=== PATIENT | female | born 1945 ===

== ENCOUNTER 2019-08-20 15:40 | Inpatient (IN) | payer MEDICARE ==
[2019-08-20] MEDS ORDERED: Magnesium Hydroxide (MOM) 30 mL UDC PO PRN (21:07)
[2019-08-20] MEDS ORDERED: Maalox 30 mL Cup PO PRN (21:07)
[2019-08-21] MEDS ORDERED: PROMETHAZINE HCL 25 MG PO PRN (07:42)
[2019-08-21] MEDS: Multivitamin Tab PO SCH (09:08)
[2019-08-21] MEDS: Apixaban 5 MG TABLET PO SCH ×2 (09:08→16:18)
[2019-08-21] MEDS: NIFEdipine 30 mg ER Tab PO SCH (09:08)
[2019-08-21] MEDS: Levothyroxine 0.1 Mg Tab PO SCH (09:10)
[2019-08-21] MEDS ORDERED: DIAZEPAM 10 MG PO SCH (21:00)
--- NOTE | 2019-08-22 00:15 | Consultation ---
DATE OF CONSULTATION: 08/21/2019 INITIAL PSYCHIATRIC EVALUATION Covering for Dr. Campo. IDENTIFYING DATA: A 73-year-old female. CHIEF COMPLAINT: "I don't know why I am here." HISTORY OF PRESENT ILLNESS: A 73-year-old female who was transferred from [facility] for medical clearance, who has been recently refusing care. Today on [id number] evaluation, the patient reports that she is extremely angry because we were "____ her care that she does not need to be here." She was supposed to go to [facility] and they just brought her here unjustly. The patient reports that she has a master's in psychology, ____ anger, avoiding and refusing all questions regarding her depression and anxiety and then she does report that she has seen a psychiatrist in the past, but is extremely guarded and minimizing about her symptoms. Medical records reviewed from [facility], medically cleared. PAST MEDICAL HISTORY: Hypertension, history of venous thrombosis, embolism, cerebral palsy with a history of confusion, agitation that led to the psychiatric hospitalization. PAST PSYCHIATRIC HISTORY: Unknown, refused to answer. SOCIAL HISTORY: Retired. Denies any illicit drug use or alcohol. PAST PSYCHIATRIC HISTORY: Denies. PAST SUICIDE ATTEMPTS: Denies. CURRENT MEDICATIONS: Reconciliation reviewed. LABORATORY DATA: Reviewed from the hospital within normal limits. MENTAL STATUS EXAMINATION: Calm, slightly anxious, congruent, gentle, anxious, distress, guarded, minimizing; therefore, unable to assess thought content, linear thought process. WEAKNESSES: Poor coping skills. STRENGTHS: Good capacity. Awake and alert x 3. ASSESSMENT: A 73-year-old female with a history of unknown mood disorder, brought in here [facility] She is guarded, minimizing, disengaged in the interview. We will obtain more collateral baseline information before initiating medication as she presents very guarded. PRIMARY DIAGNOSIS: Unspecified mood disorder. SECONDARY DIAGNOSIS: History of anxiety disorder. MEDICAL DIAGNOSIS: As noted above. PLAN: 1. Admit. 2. Obtain more collateral baseline information. 3. Observe. 4. 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 JOB# [id number]
[2019-08-22] MEDS: Levothyroxine 0.1 Mg Tab PO SCH (06:51)
[2019-08-22] MEDS: NIFEdipine 30 mg ER Tab PO SCH (08:41)
[2019-08-22] MEDS: Multivitamin Tab PO SCH (08:42)
[2019-08-22] MEDS: Apixaban 5 MG TABLET PO SCH ×2 (08:42→17:24)
[2019-08-22] MEDS: Hydrocodone/APAP 10 mg/325 mg Tab PO PRN (14:06)
--- NOTE | 2019-08-22 21:49 | Progress Notes ---
DATE: SUBJECTIVE: Chart was reviewed and the patient interviewed. Also discussed the patient's condition with the staff and reviewed records and labs. The patient seems to be slightly confused about places where she wants to live and the patient said that she wants to go to a rehab place. At the same time, she is not sure about [facility] rehab place. The patient also said that she lives by herself and she is for many years and has no children. 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 According to staff, the patient has been suspicious and has been paranoid, but during my interview, the patient was slightly calmer than what the description from the staff, but she still seems to be suspicious and paranoid. ASSESSMENT: The patient is still psychotic. TREATMENT PLAN: The patient agreed to start on Risperdal 0.25 mg twice a day and we will monitor the dose. Also, we will support therapy for the patient and work on discharge plans and placement issue. The patient also is complaining of leg cramps and we will monitor that. JOB# [id number]
--- NOTE | 2019-08-23 01:53 | History & Physical ---
ADMIT DATE: 08/22/2019 REASON FOR ADMISSION: Psychiatric disorders. HISTORY OF PRESENT ILLNESS: This is a 73-year-old female with history of hypothyroidism, chronic pain syndrome, dementia, mental disorder, was admitted to [facility] for evaluation of the underlying dementia and mental disorders. The patient on my evaluation was alert, awake, and fine, bilateral lower extremity pain. PAST MEDICAL HISTORY: Hypothyroidism, chronic pain syndrome, dementia. PAST SURGICAL HISTORY: Noncontributory. FAMILY HISTORY: Noncontributory. SOCIAL HISTORY: Lives at assisted living. No alcohol, tobacco, or drug use. CURRENT MEDICATIONS: Per medication reconciliation. ALLERGIES: SULFA. REVIEW OF SYSTEMS: Lower extremity weakness, pain, bilateral knee pain. Otherwise, 12-point system review is negative. PHYSICAL EXAMINATION: VITAL SIGNS: Temperature 98.0, pulse 78, respiration 19, blood pressure 104/64. HEART: S1, S2 normal. LUNGS: Clear. ABDOMEN: Soft. EXTREMITIES: No edema. No calf tenderness noted. LABORATORY DATA: Available lab data has been ____. ASSESSMENT: 1. Bilateral lower extremity pain. 2. Hypothyroidism. 3. Chronic pain syndrome. 4. Mental health disorder. 5. Dementia. 6. ____. PLAN: Psych evaluation by psychiatristSarbjit as needed. Continue thyroid medications. PT, OT ordered. Psych management by psychiatrist. The patient is medically stable. JOB# [id number]
[2019-08-23] MEDS: Levothyroxine 0.1 Mg Tab PO SCH (06:46)
[2019-08-23] MEDS: NIFEdipine 30 mg ER Tab PO SCH (08:57)
[2019-08-23] MEDS: Apixaban 5 MG TABLET PO SCH ×2 (08:57→16:27)
[2019-08-23] MEDS: Hydrocodone/APAP 10 mg/325 mg Tab PO PRN ×3 (08:58→22:37)
[2019-08-23] MEDS: Multivitamin Tab PO SCH (08:59)
--- NOTE | 2019-08-23 22:41 | Progress Notes ---
DATE: SUBJECTIVE: Chart reviewed and patient interviewed. Also discussed the patient's condition with the staff and reviewed records and labs. The patient is still argumentative and she is making some racial remarks, according to the staff. The patient also is still suspicious and paranoid and resisting care. She also still guarded and still has mood swings. Otherwise, the patient started on Risperdal yesterday with no side effects. ASSESSMENT: The patient is still paranoid and psychotic and needs close monitoring. TREATMENT PLAN: Continue supportive therapy for the patient and working on behavioral modification as well as adjusting psychotropic medications. JOB# [id number]
[2019-08-24] MEDS: Levothyroxine 0.1 Mg Tab PO SCH (07:01)
[2019-08-24] MEDS: NIFEdipine 30 mg ER Tab PO SCH (08:34)
[2019-08-24] MEDS: Multivitamin Tab PO SCH (08:35)
[2019-08-24] MEDS: Apixaban 5 MG TABLET PO SCH ×2 (08:36→16:38)
--- NOTE | 2019-08-24 21:45 | Progress Notes ---
DATE: SUBJECTIVE: Chart reviewed and the patient interviewed. Also, discussed the patient's condition with the staff and reviewed records and labs. The patient is still in a depressed mood and she is still suspicious and paranoid. The patient also is guarded and withdrawn and interacting minimally with others. Also, she is still resisting care and argumentative with the staff. Also, the patient is complaining of leg pain. Yesterday, the patient's blood pressure was low and the Valium was upheld. The patient is still unable to provide any safe plan for her discharge and she still seems to be in a depressed mood. ASSESSMENT: The patient is still depressed and slightly confused. TREATMENT PLAN: Continue to monitor her behavior and her condition closely. Also, we will continue Risperdal, but will decrease Valium to 5 mg at bedtime and we will continue to follow up. JOB# [id number]
[2019-08-25] MEDS: Levothyroxine 0.1 Mg Tab PO SCH (06:41)
[2019-08-25] MEDS: Multivitamin Tab PO SCH (08:17)
[2019-08-25] MEDS: NIFEdipine 30 mg ER Tab PO SCH (08:17)
[2019-08-25] MEDS: Apixaban 5 MG TABLET PO SCH ×2 (08:17→16:14)
--- NOTE | 2019-08-25 22:15 | Progress Notes ---
DATE: 08/25/2019 SUBJECTIVE: Chart reviewed and the patient interviewed. Also discussed the patient's condition with the staff and reviewed records and labs. The patient is still suspicious and paranoid and forgetful. She is also slightly confused. The patient also still has difficulty with her mood and she is still withdrawn. Otherwise, the patient is compliant with taking her medications with no side effects of medications. ASSESSMENT: The patient is less psychotic, but still needs close monitoring. TREATMENT PLAN: Continue monitoring her behavior and her condition closely. Also, continue adjusting psychotropic medications and work on her discharge plans. JOB# [id number]
[2019-08-26] MEDS: Levothyroxine 0.1 Mg Tab PO SCH (06:38)
[2019-08-26] MEDS: Multivitamin Tab PO SCH (08:33)
[2019-08-26] MEDS: NIFEdipine 30 mg ER Tab PO SCH (08:33)
[2019-08-26] MEDS: Apixaban 5 MG TABLET PO SCH ×2 (08:33→16:39)
[2019-08-27] MEDS: Levothyroxine 0.1 Mg Tab PO SCH (07:09)
[2019-08-27] MEDS: Hydrocodone/APAP 10 mg/325 mg Tab PO PRN ×2 (09:00→17:34)
[2019-08-27] MEDS: Apixaban 5 MG TABLET PO SCH ×2 (10:00→17:34)
[2019-08-27] MEDS: Multivitamin Tab PO SCH (10:00)
[2019-08-27] MEDS: NIFEdipine 30 mg ER Tab PO SCH (10:00)
--- NOTE | 2019-08-27 21:04 | Progress Notes ---
DATE: 08/27/2019 Case was discussed with staff of the patient, reviewed records. Covering for Dr. Campo. This is a 73-year-old female who was admitted on 08/20/2019, transferred from [facility]. The patient has been refusing care. The patient was extremely angry. The patient reported that she does need to be at this facility. She was to go to [facility] and they brought her here unjustly. The patient reports she has a master's in psychology. She has been angry, refusing all questions, feeling depressed. The patient also with a history of hypertension, DVT, embolism, cerebral palsy with a history of confusion and agitation. The patient believed that they have her name wrong on her records, her last name is Rich and I assured her that, that is what we have on her records. The patient continues to be paranoid, forgetful, confused. Continues to be labile, unpredictable, impulsive, needing redirection. The patient has been on Risperdal 0.25 mg twice a day with no side effects, no sedation, no nausea, no extrapyramidal symptoms. We will continue to work with the patient in group therapy, milieu therapy, and adjust the medication as needed. JOB# [id number]
[2019-08-28] MEDS: Levothyroxine 0.1 Mg Tab PO SCH (06:42)
[2019-08-28] MEDS: Apixaban 5 MG TABLET PO SCH ×2 (09:32→17:40)
[2019-08-28] MEDS: NIFEdipine 30 mg ER Tab PO SCH (09:33)
[2019-08-28] MEDS: Multivitamin Tab PO SCH (09:33)
[2019-08-28] MEDS: Hydrocodone/APAP 10 mg/325 mg Tab PO PRN ×2 (14:27→20:51)
--- NOTE | 2019-08-28 14:41 | Progress Notes ---
DATE: 08/28/2019 Case was discussed with staff of the patient, reviewed records. The patient is able to make sense. Continues to be unpredictable, impulsive with episodes of being angry, irritable. Sleeping better, eating better. No side effects of the medication, no sedation, no nausea, no extrapyramidal symptoms. The patient with a history of hypertension, DVT embolism, cerebral palsy, confused, agitated at times. No side effects with the medication, no sedation, no nausea, no extrapyramidal symptoms. We will continue to work with the patient in group therapy, milieu therapy, and adjust the medication as needed. JOB# [id number]
--- NOTE | 2019-08-28 19:26 | Progress Notes ---
DATE: 08/25/2019 SUBJECTIVE: Chart reviewed and the patient interviewed. Also discussed the patient's condition with the staff and reviewed records and labs. The patient is still confused. She also still paranoid and delusional and thinks that the staff are "giving me the wrong medicine." The patient also still needs redirections. She also is argumentative. The patient also yesterday refused to take any medications for the first time. Otherwise, no behavioral issues and unable to provide any specific plans for discharge. ASSESSMENT: The patient is still depressed and slightly confused. TREATMENT PLAN: We will continue monitoring her behavior closely. Also, continue working on discharge plans and placement issue. JOB# [id number]
[2019-08-29] MEDS: Levothyroxine 0.1 Mg Tab PO SCH (06:55)
[2019-08-29] MEDS: Apixaban 5 MG TABLET PO SCH ×2 (08:18→16:12)
[2019-08-29] MEDS: Multivitamin Tab PO SCH (08:18)
[2019-08-29] MEDS: NIFEdipine 30 mg ER Tab PO SCH (08:19)
[2019-08-29] MEDS: Hydrocodone/APAP 10 mg/325 mg Tab PO PRN ×2 (08:27→16:12)
--- NOTE | 2019-08-29 09:22 | Progress Notes ---
DATE: SUBJECTIVE: Chart was reviewed and the patient interviewed. Also discussed the patient's condition with the staff and reviewed records and labs. The patient is still guarded and still has labile affect. The patient also is still in a depressed mood and suspicious and paranoid. The patient also is still easily agitated at times but at the same time wants to be left alone. She also still unable to provide safe plan for self-care or discharge. On the other hand, the patient has been compliant with taking her medications with no side effects of medications. During interview, the patient is calm and cooperative and she is slightly suspicious, but no behavioral issues. ASSESSMENT: The patient is still depressed. TREATMENT PLAN: We will work with case management social worker in regard to discharge plans and it seemed that the patient most probably will go to [facility], but patient is still not agreeable to go there. JOB# [id number]
[2019-08-30] MEDS: Levothyroxine 0.1 Mg Tab PO SCH (06:44)
--- NOTE | 2019-08-30 07:32 | Progress Notes ---
DATE: PSYCHIATRIC PROGRESS NOTE SUBJECTIVE: Chart was reviewed and the patient interviewed. Also discussed the patient's condition with the staff and reviewed records and labs. The patient is still guarded and she is still suspicious and slightly paranoid. The patient also is still restless and still has sometimes mood swings. She also is still unsure about her placement. Continue to discuss with the patient placement in [facility]. At the same time, we will continue to work on her ineffective coping and we will continue to follow up. JOB# [id number]
[2019-08-30] MEDS: Apixaban 5 MG TABLET PO SCH ×2 (08:45→17:06)
[2019-08-30] MEDS: Multivitamin Tab PO SCH (08:45)
[2019-08-30] MEDS: Hydrocodone/APAP 10 mg/325 mg Tab PO PRN ×2 (08:45→15:18)
[2019-08-30] MEDS: NIFEdipine 30 mg ER Tab PO SCH (08:46)
--- NOTE | 2019-08-30 22:00 | General Progress Note ---
Subjective - Review of Systems Service Date: 08/30/19 Subjective: Patient seen and examined feels better Objective - Results Recent Labs: Laboratory Last Values POC Glucose 83 MG/DL (70 - 105) 08/20/19 20:04 - Physical Exam Vitals and I&O: Vital Signs Temp 99.1 F 08/30/19 21:07 Pulse 82 08/30/19 21:07 Resp 20 08/30/19 21:07 BP 109/71 08/30/19 21:07 Pulse Ox 92 08/30/19 21:07 Intake & Output 08/30/19 08/30/19 08/31/19 06:59 18:59 06:59 Intake Total 240 900 120 Balance 240 900 120 Intake: Oral 240 900 120 Other: # Voids 3 3 3 # Bowel Movements 0 0 1 Active Medications: Current Medications Acetaminophen (Tylenol) 650 mg PO Q4H PRN PRN Reason: Pain (Mild 1-3) Stop: 10/19/19 21:00 Last Admin: 08/25/19 16:14 Dose: 650 mg Acetaminophen (Tylenol) 650 mg PO Q4HR PRN PRN Reason: Temperature Above 100 Stop: 10/19/19 21:06 Acetaminophen/Hydrocodone Bitart ([place] 10 Mg/325 Mg) 1 tab PO Q4HR PRN PRN Reason: Pain (Severe 7-10) Stop: 10/20/19 07:44 Last Admin: 08/30/19 15:18 Dose: 1 tab Al Hydrox/Mg Hydrox/Simethicone (Maalox) 30 ml PO Q4HR PRN PRN Reason: GI DISTRESS Stop: 10/19/19 21:06 Ascorbic Acid (Vitamin C) 500 mg PO DAILY COREEN Stop: 10/20/19 08:59 Last Admin: 08/30/19 08:45 Dose: 500 mg Baclofen (Lioresal) 10 mg PO BID COREEN Stop: 10/20/19 08:59 Last Admin: 08/30/19 17:06 Dose: 10 mg Diazepam (Valium) 5 mg PO HS COREEN Stop: 10/23/19 20:59 Last Admin: 08/30/19 20:54 Dose: 5 mg Levothyroxine Sodium (Synthroid) 0.1 mg PO QDAC COREEN Stop: 10/20/19 08:59 Last Admin: 08/30/19 06:44 Dose: 0.1 mg Lorazepam (Ativan) 0.5 mg PO Q4HR PRN; Protocol PRN Reason: Agitation Stop: 09/19/19 21:06 Magnesium Hydroxide (Milk Of Magnesia) 30 ml PO HS PRN PRN Reason: Constipation Multivitamins/Vitamin C (Theragran) 1 tab PO DAILY COREEN Stop: 10/20/19 08:59 Last Admin: 08/30/19 08:45 Dose: 1 tab Nifedipine (Procardia Xl) 30 mg PO DAILY COREEN Stop: 10/20/19 08:59 Last Admin: 08/30/19 08:46 Dose: 30 mg Risperidone (Risperdal) 0.25 mg PO BID COREEN; Protocol Stop: 10/21/19 08:59 Last Admin: 08/30/19 17:06 Dose: 0.25 mg Temazepam (Restoril) 15 mg PO HS PRN; Protocol PRN Reason: Insomnia Stop: 10/20/19 07:41 Last Admin: 08/26/19 20:58 Dose: 15 mg Cardiovascular: Regular rate Lungs: Clear to auscultation Assessment/Plan - Assessment Assessment: Hypothyroidism Chronic pain syndrome Dementia Mental health disorder - Plan Plan: Continue current treatment plan Psych management per psych Fall precaution Asp precaution Nutritional Asmnt/Malnutr-PDOC - Dietary Evaluation Malnutrition Findings (Please click <Entered> for more info): Nutritional Asmnt/Malnutrition Start: 08/24/19 14: 34 Text: Status: Complete Freq: Protocol: Document 08/24/19 14:36 ROSALIE (Rec: 08/24/19 14:39 ROSALIE [id number]) Nutritional Asmnt/Malnutrition Patient General Information Nutritional Screening Moderate Risk Diagnosis Psychosis Pertinent Medical Hx/Surgical Hx Hypothyroidism, Chronic Pain Syndrome, Dementia Subjective Information Pt is a 73-year-old female admitted on 08/20 d/t refusing care. Pt is eating an estimated 60% of meals x3 days Per Meal/Nutrition Activity Record. Dietary is currently providing an estimated 2300 kcals and 140 gm Pro, per Pt PO intake this is providing an estimated 1380 kcals and 80gm Pro to meet 100% kcal and 100 +% Pro needs. Visited pt after lunch, stated she does not like regular milk and would prefer soy or almond milk, changes complete with dietary. Anthropometrics HT: 54 WT: 115 LB (52.27 kg) BMI: 19.74 (Normal) GI/ Skin Integrity GI: WNL, Soft, Non-tender BM: 08/23 x1 I/O: 1200/Not Noted Skin: WNL J Carlos: 17 Diet Order: Cardiac, 2gm Na Estimated Energy Needs: ( Geriatric, CBW) 7927-6978 kcals (25-30 kcals/ kg) 50-63 g Pro (1.0-1.2 g/kg) 1279-4412 ml (25-30 ml/kg) Current Diet Order/ Nutrition Support Cardiac, 2gm Na Pertinent Medications Maalox (PRN), Vitamin C, Synthroid, MOM (PRN), Theragran, Procardia Pertinent Labs 08/20: Na 132, Glucose 103 Nutritional Hx/Data Height 1.63 m Height (Calculated Centimeters) 162.6 Current Weight (lbs) 52.163 kg Weight (Calculated Kilograms) 52.2 Weight (Calculated Grams) 68005.1 [place] Body Weight 120 LB (54.55 kg) % [place] Body Weight 96 Body Mass Index (BMI) 19.7 Weight Status Approriate GI Symptoms GI Symptoms None Last BM 08/23 x1 Skin Integrity/Comment: Skin: WNL J Carlos: 17 Current %PO Fair (50-74%) Estimated Nutritional Goals BEE in Kcals: Using Current wt Calories/Kcals/Kg 25-30 Kcals Calculated 5632-9924 Protein: Using Current wt Protein g/k.0-1.2 Protein Calculated 50-63 Fluid: ml 5597-3947 ml (25-30 ml/kg) Nutritional Problem No current Nutrition Prob Problem No nutrition diagnosis at this time. Etiology N/A Signs/Symptoms: N/A Malnutrition Related to Morbid Obesity Malnutrition related to morbid obesity No Intervention/Recommendation Comments Continue Cardiac, 2gm Na diet as tolerated. Expected Outcomes/Goals Expected Outcomes/Goals 1.PO intake to continue to meet >75% of estimated nutritional needs. 2.Monitor PO intake, wt, nutrition related labs, and skin integrity. 3.F/U as low risk in 7-10 days , 08/30-09/02
[2019-08-31] MEDS: Levothyroxine 0.1 Mg Tab PO SCH (06:52)
[2019-08-31] MEDS: NIFEdipine 30 mg ER Tab PO SCH (09:36)
[2019-08-31] MEDS: Multivitamin Tab PO SCH (09:36)
[2019-08-31] MEDS: Apixaban 5 MG TABLET PO SCH ×2 (09:41→17:40)
[2019-08-31] MEDS: Hydrocodone/APAP 10 mg/325 mg Tab PO PRN ×2 (11:12→15:34)
--- NOTE | 2019-08-31 21:25 | Discharge Summary ---
DATE OF DISCHARGE: 08/31/2019 AGE: 73. SEX: Male. PHYSICIAN: Dr. Campo. FINAL DIAGNOSIS AND PRIMARY DIAGNOSIS: Major depression, severe, recurrent, with psychotic features. SECONDARY DIAGNOSIS: Generalized anxiety disorder. REASON FOR HOSPITALIZATION: The patient was admitted to the hospital because of increased depression and the resisting care and refused help or treatment as well as anger and paranoia. HOSPITAL COURSE: The patient continued to be anxious and withdrawn. The patient also was guarded and withdrawn. In the beginning, patient refused to take any psychotropic medications, but later on, the patient agreed to take Risperdal and she was given a dose of 0.25 mg twice a day. Gradually, the patient was calmer and her affect was bright. The patient also agreed to decrease Valium to 5 mg at bedtime with plan to stop it completely later on. The patient was accepted back to [facility] and the patient returned back there. Physical examination of the patient came as mentioned under AXIS III of final diagnosis. Blood workup was basically within normal. At times, the patient was complaining of leg cramps, but with no major medical issues. AFTER DISCHARGE PLANS: The patient discharged from the hospital back to [facility] with plans to follow her there. EXPECTED OUTCOME AFTER DISCHARGE: Fair if the patient continues with her treatment and continues with outpatient treatment and followup. JOB# [id number]
[2019-09-01] MEDS: Hydrocodone/APAP 10 mg/325 mg Tab PO PRN (05:04)
[2019-09-01] MEDS: Levothyroxine 0.1 Mg Tab PO SCH (06:42)
[2019-09-01] MEDS: NIFEdipine 30 mg ER Tab PO SCH (09:13)
[2019-09-01] MEDS: Apixaban 5 MG TABLET PO SCH ×2 (09:17→16:29)
[2019-09-01] MEDS: Multivitamin Tab PO SCH (09:17)
--- NOTE | 2019-09-01 20:55 | Discharge Summary ---
DATE OF DISCHARGE: 09/01/2019 AGE: 73. SEX: Female. PHYSICIAN: Dr. Campo. FINAL DIAGNOSIS: Primary diagnosis: Depressive mood disorder, unspecified, with psychotic features. The patient was supposed to be discharged yesterday to [facility], but her discharge was not done and the facility accepted the patient to go back today instead of yesterday. No change in the dictations, mental status examination or her condition and this is an update of the discharge summary that was done yesterday. [facility]# [id number]
--- NOTE | 2019-09-01 22:51 | Progress Notes ---
DATE: 08/31/2019 Chart reviewed and the patient interviewed and discussed the patient's condition with the staff and reviewed records and labs. The patient is doing better and less paranoid and less agitated. The patient also is agreeable to return to [facility] and I dictated the discharge summary. Her discharge will be canceled for other reasons, the patient will not go there. The patient not suicidal or homicidal, and is compliant with taking her medications. [facility]# [id number]
== END 2019-09-01 18:45 | DRG 885 ==
LOC: GERO 20:00
PROVIDERS: ADMIT Psychiatry & Neurology Psychiatry; ATTEND Psychiatry & Neurology Psychiatry
DX: F32.3 Major depressive disorder, single episode, severe with psychotic features (principal); F03.90 Unspecified dementia, unspecified severity, without behavioral disturbance, psychotic disturbance, mood disturbance, and anxiety; F39 Unspecified mood [affective] disorder; E03.9 Hypothyroidism, unspecified; G89.4 Chronic pain syndrome; M79.662 Pain in left lower leg; M79.661 Pain in right lower leg; F41.1 Generalized anxiety disorder
CPT/HCPCS: 82948-90; 83036-90; Z7610

== ENCOUNTER 2020-02-17 12:28 | Inpatient (IN) | payer MEDICARE ==
[2020-02-17 22:48] VITALS: BP 134/90
[2020-02-18] MEDS: Multivitamin Tab PO SCH (08:56)
[2020-02-18] MEDS ORDERED: APAP/Codeine 300 mg/30 mg Tab PO PRN (15:14)
[2020-02-18] MEDS ORDERED: Maalox 30 mL Cup PO PRN (15:14)
--- NOTE | 2020-02-18 15:24 | History and Physical ---
History of Present Illness - HPI Chief Complaint: Psychosis HPI: * Admitted from [facility] * Admitted for: * Refusing medicine and care * Verbally abusing staff and residents Vital Signs: Last Vital Signs Temp 99.6 F 02/18/20 14:00 Pulse 84 02/18/20 14:00 Resp 18 02/18/20 14:00 BP 101/69 02/18/20 14:00 Pulse Ox 93 02/18/20 14:00 Past Medical History Cardiovascular: Report: CHF, HTN Pulmonary: Report: No Pertinent Hx [employer]: Report: Dementia, Peripheral neuropathy, Other (Insomnia) Psych: Report: Schizophrenia, Other (Unspecified Mood/Affective Disorder) Musculoskeletal: Report: Weakness Endocrine: Report: Hypothyroidism Social History Smoke: No Alcohol: None Drugs: None Lives: Custodial - Medications Home Medications: Home Medication Medication Instructions Recorded Type Al Hyd/Mg Hyd/Simethicone [Maalox] 30 ml PO Q4HR PRN udc 09/01/19 Rx Acetaminophen [Tylenol] 650 mg PO Q6HR PRN 02/18/20 History Acetaminophen [Tylenol] 650 mg PO Q6HR PRN 02/18/20 History Acetaminophen with Codeine 1 tab PO Q4HR PRN 02/18/20 History [Tylenol with Codeine #3 Tablet] Aspirin EC [Ecotrin] 81 mg PO DAILY 02/18/20 History Folic Acid/Multivit-Min/Lutein 2 tab PO DAILY 02/18/20 History [Multi-Vitamin Gummies] Levothyroxine [Synthroid] 0.1 mg PO QDAC 02/18/20 History Lorazepam [Ativan] 0.5 mg PO HS 02/18/20 History NIFEdipine [Procardia Xl] 30 mg PO DAILY 02/18/20 History risperiDONE [RisperDAL] 0.5 mg PO HS 02/18/20 History - Allergies Allergies/Adverse Reactions: Allergies Allergy/AdvReac Type Severity Reaction Status Date / Time Sulfa (Sulfonamide Allergy Verified 08/21/19 03:46 Antibiotics) Review of Systems - Review of Systems Constitutional: Report: No Significant Eyes: Report: No Significant ENT: Report: No Significant Respiratory: Report: No Significant Cardiovascular: Report: No Significant Gastrointestinal: Report: No Significant Genitourinary: Report: No Significant Musculoskeletal: Report: No Significant Skin: Report: No Significant Neurological: Report: No Significant Physical Exam - Physical Exam HEENT: Report: Ears Nose Throat within normal limits, Pharnyx within normal limits Neck: Report: Within normal limits Cardiovascular Systems: Report: Regular, Rate and Rhythm, no murmurs noted Respiratory: Report: Clear to Auscultation of lung anderson, Breath Sounds are within normal limits Abdomen: Report: Non-tender to palpation, Bowel Sounds are within normal limits Back: Report: Inspection of back is within normal limits. Extremities: Report: Non-tender to palpation., Patient had full range of motion , No pedal edema was noted on inspection Skin: Report: Color of skin is within normal limits, Warm, Dry, No Rashes noted of the skin Neuro/Psych: Report: A+Ox3, CN II-XII intact, No sensory deficit - Assessment Assessment: * Acute Psychosis * Cerebral Palsy * CHF * Polyneuropathy * Debility * Dementia * Hypothyroidism * Anxiety * Generalized Muscle Weakness * HTN * Muscle Spasm * Schizophrenia * Chronic Pain * Gait Abnormality * Insomnia - Plan Plan: * Admitted to [facility] * Psychiatry Consult: Dr. Campo * Continue meds from [facility] * Obtain labs on Thursday Cranial Nerve Assessment - CRANIAL NERVES alcohol swab:: Yes Distinguishes movements in peripheral field.:: Yes up, down, sideways:: Yes on forehead, cheeks and chin, chews symmetrically:: Yes FACIAL VII: upper: Frowns Symmetrically:: Yes FACIAL VII: Lower: Smiles Symmetrically:: Yes both ears:: Yes GLOSS-PHARYNGEAL IX: Has gag reflex:: Yes VAGUS X: Can make guttural sounds:: Yes ACCESSORY XI: Shrugs shoulders symmetrically:: Yes tremors or fasciculation's:: Yes - MOTOR spasticity, cogwheel, atrophy, tremor, asterixis, other: Yes - COORDINATION Finger to nose, heel to henson, NANCY, gait, Romberg: Yes - SENSORY signs, Brudzinski, Kernig, neck rigidity:: Yes - REFLEXES Brachioradials Right:: Yes Brachioradials Left:: Yes Biceps Right:: Yes Biceps Left:: Yes Triceps Right:: Yes Triceps Left:: Yes Knee Right:: Yes Knee Left:: Yes Ankle Right:: Yes Ankle Left:: Yes Babinski Right:: No Babinski Left:: No
--- NOTE | 2020-02-18 16:46 | Psychiatric Evaluation ---
DATE OF SERVICE: HISTORY OF PRESENT ILLNESS: The patient was transferred here from [facility] Room. The patient was originally from [facility] and noted by staff to be refusing medications as well as being verbally abusive towards the staff. She has a significant history of cerebral palsy, heart failure, neuropathy, and dementia. 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 MENTAL STATUS EXAMINATION: GENERAL APPEARANCE AND BEHAVIOR: The patient is resting comfortably in bed, not in acute distress, appears to be slightly older than stated age. Good eye contact, not cooperative with interview. Speech is normal, rate, rhythm and tone. Mood and affect: The patient appears to be quite irritable and anxious. Affect is congruent. Thought process and thought content: The patient is clearly confabulating many answers. Disoriented to time and place. Insight and judgment is poor. DIAGNOSTIC IMPRESSION: Dementia with behavioral disturbances/psychosis. PLAN: We will start the patient on her home medications and titrate as needed. [facility]# [id number]
[2020-02-19] MEDS: Levothyroxine 0.1 Mg Tab PO SCH (06:43)
[2020-02-19] MEDS: Multivitamin Tab PO SCH ×2 (08:48→09:01)
[2020-02-19] MEDS: NIFEdipine 30 mg ER Tab PO SCH ×2 (08:48→09:01)
[2020-02-19] MEDS ORDERED: FOLIC ACID PO SCH (09:00)
[2020-02-19] MEDS ORDERED: LUTEIN PO SCH (09:00)
[2020-02-19] MEDS ORDERED: MULTIVIT MIN PO SCH (09:00)
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
[2020-02-20] MEDS: Levothyroxine 0.1 Mg Tab PO SCH (06:43)
[2020-02-20] MEDS: Multivitamin Tab PO SCH (09:09)
[2020-02-20] MEDS: NIFEdipine 30 mg ER Tab PO SCH (09:21)
[2020-02-20] MEDS ORDERED: Multivitamin w/ Minerals Tab PO SCH (10:00)
--- NOTE | 2020-02-20 13:40 | Internal Medicine Prog Note ---
Internal Medicine Subjective - Subjective Service Date: 02/20/20 Patient seen and examined:: without staff Per staff patient has:: no adverse event, no episodes of fall (no fevers no cough no chest pain no sob) Internal Medicine Objective - Physical Exam Vitals and I&O: Vital Signs Temp 99.3 F 02/19/20 20:00 Pulse 89 02/20/20 09:21 Resp 17 02/20/20 08:00 BP 148/76 02/20/20 09:21 Pulse Ox 94 02/19/20 16:00 Intake & Output 02/19/20 02/20/20 02/20/20 18:59 06:59 18:59 Intake Total 900 120 Balance 900 120 Intake: Oral 900 120 Other: # Voids 3 3 # Bowel Movements 0 Stool Characteristics Soft Soft Soft Active Medications: Current Medications Acetaminophen (Tylenol) 650 mg PO Q6HR PRN PRN Reason: Pain (Mild 1-3) Stop: 04/18/20 15:13 Last Admin: 02/19/20 22:03 Dose: 650 mg Acetaminophen (Tylenol) 650 mg PO Q6HR PRN PRN Reason: Temperature Above 100 Stop: 04/18/20 15:13 Acetaminophen/Codeine Phosphate (Tylenol W/Codeine #3) 1 tab PO Q4HR PRN PRN Reason: MODERATE/SEVERE PAIN Stop: 04/18/20 15:13 Al Hydrox/Mg Hydrox/Simethicone (Maalox) 30 ml PO Q4HR PRN PRN Reason: GI DISTRESS Stop: 04/18/20 15:13 Aspirin (Ecotrin) 81 mg PO DAILY [facility] Stop: 04/19/20 08:59 Last Admin: 02/20/20 09:09 Dose: 81 mg Levothyroxine Sodium (Synthroid) 0.1 mg PO QDAC [facility] Stop: 04/19/20 07:29 Last Admin: 02/20/20 06:43 Dose: 0.1 mg Lorazepam (Ativan) 0.5 mg PO Q4HR PRN; Protocol PRN Reason: Anxiety Stop: 03/18/20 23:04 Lorazepam (Ativan) 0.5 mg PO HS C[facility]; Protocol Stop: 04/18/20 20:59 Last Admin: 02/19/20 22:02 Dose: Not Given Multivitamins/Vitamin C (Theragran) 1 tab PO DAILY [facility] Stop: 04/18/20 08:59 Last Admin: 02/20/20 09:09 Dose: 1 tab Mupirocin (Bactroban Oint) 1 appl NS BID [facility] Stop: 02/24/20 09:01 Last Admin: 02/20/20 09:45 Dose: 1 appl Nifedipine (Procardia Xl) 30 mg PO DAILY [facility] Stop: 04/19/20 08:59 Last Admin: 02/20/20 09:21 Dose: 30 mg Risperidone (Risperdal) 0.5 mg PO HS [facility]; Protocol Stop: 04/18/20 20:59 Last Admin: 02/19/20 20:41 Dose: Not Given Zolpidem Tartrate (Ambien) 5 mg PO HS PRN PRN Reason: Insomnia Stop: 04/17/20 23:04 HEENT: NC/AT Neck: Supple Lungs: CTAB Cardiovascular: RRR, Normal S1, Normal S2 Internal Medicine Assmt/Plan - Assessment Assessment: 1. CHF 2. Cerebral palsy 3. Agitation - Plan Plan: covid-19 screening continue meds d/w r.n. reviewed complete medical records
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
[2020-02-21] MEDS: Levothyroxine 0.1 Mg Tab PO SCH (06:43)
[2020-02-21] MEDS: Multivitamin Tab PO SCH ×2 (09:04→10:06)
[2020-02-21] MEDS: NIFEdipine 30 mg ER Tab PO SCH ×2 (09:04→10:06)
--- NOTE | 2020-02-21 11:13 | Internal Medicine Prog Note ---
Internal Medicine Subjective - Subjective Service Date: 02/21/20 Patient seen and examined:: without staff Patient is:: awake Per staff patient has:: no adverse event, no episodes of fall (no fevers no cough no chest pain no sob) Internal Medicine Objective - Physical Exam Vitals and I&O: Vital Signs Temp 96.8 F 02/21/20 06:20 Pulse 66 02/21/20 06:20 Resp 17 02/21/20 08:00 BP 116/70 02/21/20 06:20 Pulse Ox 95 02/21/20 06:20 Intake & Output 02/20/20 02/21/20 02/21/20 18:59 06:59 18:59 Intake Total 1000 360 Output Total 1 Balance 1000 359 Intake: Oral 1000 360 Output: Urine/Stool Mix 1 Other: # Voids 3 1 # Bowel Movements 1 0 Stool Characteristics Soft Soft Soft Active Medications: Current Medications Acetaminophen (Tylenol) 650 mg PO Q6HR PRN PRN Reason: Pain (Mild 1-3) Stop: 04/18/20 15:13 Last Admin: 02/19/20 22:03 Dose: 650 mg Acetaminophen (Tylenol) 650 mg PO Q6HR PRN PRN Reason: Temperature Above 100 Stop: 04/18/20 15:13 Acetaminophen/Codeine Phosphate (Tylenol W/Codeine #3) 1 tab PO Q4HR PRN PRN Reason: MODERATE/SEVERE PAIN Stop: 04/18/20 15:13 Al Hydrox/Mg Hydrox/Simethicone (Maalox) 30 ml PO Q4HR PRN PRN Reason: GI DISTRESS Stop: 04/18/20 15:13 Aspirin (Ecotrin) 81 mg PO DAILY [facility] Stop: 04/19/20 08:59 Last Admin: 02/21/20 10:06 Dose: Not Given Levothyroxine Sodium (Synthroid) 0.1 mg PO QDAC [facility] Stop: 04/19/20 07:29 Last Admin: 02/21/20 06:43 Dose: 0.1 mg Lorazepam (Ativan) 0.5 mg PO Q4HR PRN; Protocol PRN Reason: Anxiety Stop: 03/18/20 23:04 Lorazepam (Ativan) 0.5 mg PO HS [facility]; Protocol Stop: 04/18/20 20:59 Last Admin: 02/20/20 21:30 Dose: 0.5 mg Multivitamins/Vitamin C (Theragran) 1 tab PO DAILY [facility] Stop: 04/18/20 08:59 Last Admin: 02/21/20 10:06 Dose: Not Given Mupirocin (Bactroban Oint) 1 appl NS BID [facility] Stop: 02/24/20 09:01 Last Admin: 02/21/20 10:05 Dose: Not Given Nifedipine (Procardia Xl) 30 mg PO DAILY [facility] Stop: 04/19/20 08:59 Last Admin: 02/21/20 10:06 Dose: Not Given Risperidone (Risperdal) 0.5 mg PO HS [facility]; Protocol Stop: 04/18/20 20:59 Last Admin: 02/20/20 21:26 Dose: 0.5 mg Zolpidem Tartrate (Ambien) 5 mg PO HS PRN PRN Reason: Insomnia Stop: 04/17/20 23:04 General: weak HEENT: NC/AT Neck: Supple Lungs: CTAB Cardiovascular: RRR, Normal S1, Normal S2 Extremities: clear Neurological: no change Internal Medicine Assmt/Plan - Assessment Assessment: 1. HTN 2. Hypothyroidism 3. Agitation - Plan Plan: check labs covid-19 screening resume nifedipine 30 mg po daily continue meds d/w r.n. reviewed complete medical records Nutritional Asmnt/Malnutr-PDOC - Dietary Evaluation Malnutrition Findings (Please click <Entered> for more info): Nutritional Asmnt/Malnutrition Start: 02/20/20 14: 37 Text: Status: Complete Freq: Protocol: Document 02/20/20 14:37 ROSALIE (Rec: 02/20/20 14:41 ROSALIE [id number]) Nutritional Asmnt/Malnutrition Patient General Information Nutritional Screening Low Risk Diagnosis Psychosis Pertinent Medical Hx/Surgical Hx Cerebral Palsy, CHF, Polyneuropathy, Debility, HTN, Dementia, Peripheral neuropathy, Schizophrenia, Hypothyroidism Subjective Information GI: WNL, Soft, Flat, Non- tender BM: Not Noted I/O: 1020/Not Noted Skin: Dryness, Redness, Abdomen- pink, TR lower arm- bruise J Carlos: 14 Diet Order: CCHO, NA2Gm Estimated Energy Needs: ( Geriatric, CBW) 0064-9091 kcals (25-30 kcals/ kg) 50-60g Pro (1.0-1.2 g/kg) 7420-4181 ml (25-30 ml/kg) Current Diet Order/ Nutrition Support CCHO, NA2Gm Patient / S.O Can Pertinent Medications Maalox (PRN), Synthroid, Theragran Pertinent Labs 02/17: POC Glucose 107 Nutritional Hx/Data Height 1.63 m Height (Calculated Centimeters) 162.6 Current Weight (lbs) 50.802 kg Weight (Calculated Kilograms) 50.8 Weight (Calculated Grams) 45523.3 Christmas Body Weight 120 LB (54.54 kg) % Christmas Body Weight 93 Body Mass Index (BMI) 19.2 Weight Status Approriate GI Symptoms GI Symptoms None Last BM Not Noted Difficult in: None Usual diet at home No fish Skin Integrity/Comment: Dryness, Redness, Abdomen- pink, TR lower arm- bruise J Carlos: 14 Current %PO Fair (50-74%) Estimated Nutritional Goals BEE in Kcals: Using Current wt Calories/Kcals/Kg 20-25 Kcals Calculated 7117-9964 Protein: Using Current wt Protein g/k.0-1.2 Protein Calculated 50-60 Fluid: ml 8437-1919 ml (25-30 ml/kg) Nutritional Problem No current Nutrition Prob Problem No nutrition diagnosis at this time. Etiology N/A Signs/Symptoms: N/A Malnutrition Related to Morbid Obesity Malnutrition related to morbid obesity No Intervention/Recommendation Comments 1. Continue CCHO, NA2Gm diet as tolerated. 2. Recommendation diet order of Na2Gm. Expected Outcomes/Goals Expected Outcomes/Goals 1. PO intake to meet >75% of estimated nutritional needs. 2. Monitor PO intake, wt, nutrition related labs, and skin integrity to trend WNL. 3. F/U as low risk in 7-10 days, 02/26-03/01.
[2020-02-21 12:11] LABS: CHOLESTEROL 287 mg/dL (<200); LDL CHOLESTEROL 184 mg/dL (0-129); TRIGLYCERIDES 55 mg/dL (30-150)
[2020-02-21 12:14] LABS: A1C 5.5
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
[2020-02-22] MEDS: Levothyroxine 0.1 Mg Tab PO SCH (07:05)
--- NOTE | 2020-02-22 07:05 | Progress Notes ---
DATE: 02/22/2020 SUBJECTIVE: Chart reviewed and the patient interviewed. Also discussed the patient's condition with the staff and reviewed records and labs. The patient is still extremely angry and agitated. The patient is demanding and is sometimes verbally abusive to nurses and staff. The patient also is still selective as far as taking her medications and sometimes refused to take medications. The patient has a temperature 99.8 and she has been running high fever. The patient is refusing a COVID-19 test in spite of explaining the importance of getting the test done. ASSESSMENT: The patient is still psychotic and is still severely agitated and needs close monitoring. TREATMENT PLAN: We will continue to monitor her behavior and her condition closely. Also, encouraged the patient to take her medications and also to get the COVID-19 test done. Also, encouraged the patient to be more cooperative with treatment staff. JOB# [id number]
[2020-02-22] MEDS: Multivitamin Tab PO SCH (08:34)
[2020-02-22] MEDS: NIFEdipine 30 mg ER Tab PO SCH (08:34)
[2020-02-22 12:46] LABS: HEMATOCRIT 42.1 % (36-48); HEMOGLOBIN 13.8 g/dL (12.0-16.0); MEAN CORPUSCULAR HEMOGLOBIN 30 pg (27-31); MEAN CORPUSCULAR HGB CONC 33 % (32-36); MEAN CORPUSCULAR VOLUME 92 fL (79.0-98.0); PLATELET COUNT 189 K/uL (130-430); RED BLOOD COUNT 4.55 MIL/uL (4.2-6.2); RED CELL DISTRIBUTION WIDTH 14.6 % (9.0-15.0); WHITE BLOOD COUNT 2.6 K/uL (4.8-10.8)
[2020-02-22 12:47] LABS: % NEUTROPHILS 56.6 % (40-70); BASOPHILS % (AUTO) 0.5 % (0.0-2.0); EOSINOPHILS % (AUTO) 1.1 % (0-4); LYMPHOCYTES # (AUTO) 0.8 K/uL (1.0-5.5); LYMPHOCYTES % (AUTO) 29.6 % (20.5-51.5); MONOCYTES # (AUTO) 0.3 K/uL (0.0-1.0); MONOCYTES % (AUTO) 12.2 % (1.7-9.3); NEUTROPHILS # (AUTO) 1.5 K/uL (1.8-7.7)
[2020-02-22 14:00] LABS: POTASSIUM SERUM 3.7 mmol/L (3.5-5.1)
[2020-02-22 14:02] LABS: CREATININE - SERUM 0.58 mg/dL (0.70-1.30)
[2020-02-22 14:03] LABS: BILIRUBIN,TOTAL 0.2 mg/dL (0.0-1.0); CALCIUM SERUM 8.8 mg/dL (8.4-10.2); TOTAL PROTEIN,SERUM 6.7 g/dL (6.4-8.3)
--- NOTE | 2020-02-22 21:42 | Internal Medicine Prog Note ---
Internal Medicine Subjective - Subjective Service Date: 02/22/20 Patient seen and examined:: without staff (no fevers, no cough, no chest pain, no sob) Patient is:: awake Per staff patient has:: no adverse event, no episodes of fall (no fevers no cough no chest pain no sob) Internal Medicine Objective - Results Result Diagrams: 02/22/20 10:30 02/22/20 10:30 Recent Labs: Laboratory Last Values WBC 2.6 K/uL (4.8-10.8) L 02/22/20 10:30 RBC 4.55 MIL/uL (4.2-6.2) 02/22/20 10:30 Hgb 13.8 g/dL (12.0-16.0) 02/22/20 10:30 Hct 42.1 % (36-48) 02/22/20 10:30 MCV 92 fL (79.0-98.0) 02/22/20 10:30 MCH 30 pg (27-31) 02/22/20 10:30 MCHC 33 % (32-36) 02/22/20 10:30 RDW 14.6 % (9.0-15.0) 02/22/20 10:30 Plt Count 189 K/uL (130-430) 02/22/20 10:30 MPV 7.4 fl (7.4-10.4) 02/22/20 10:30 Neut % (Auto) 56.6 % (40-70) 02/22/20 10:30 Lymph % (Auto) 29.6 % (20.5-51.5) 02/22/20 10:30 [place] % (Auto) 12.2 % (1.7-9.3) H 02/22/20 10:30 Eos % (Auto) 1.1 % (0-4) 02/22/20 10:30 Baso % (Auto) 0.5 % (0.0-2.0) 02/22/20 10:30 Neut # (Auto) 1.5 K/uL (1.8-7.7) L 02/22/20 10:30 Lymph # (Auto) 0.8 K/uL (1.0-5.5) 02/22/20 10:30 [place] # (Auto) 0.3 K/uL (0.0-1.0) 02/22/20 10:30 Eos # (Auto) 0.0 K/uL (0.0-0.4) 02/22/20 10:30 Baso # (Auto) 0.0 K/uL (0.0-0.2) 02/22/20 10:30 Sodium 130 mmol/L (136-145) L 02/22/20 10:30 Potassium 3.7 mmol/L (3.5-5.1) 02/22/20 10:30 Chloride 96 mmol/L (98-107) L 02/22/20 10:30 Carbon Dioxide 27 mmol/L (23-29) 02/22/20 10:30 Anion Gap 11 (5-15) 02/22/20 10:30 BUN 15 mg/dL (8-21) 02/22/20 10:30 Creatinine 0.58 mg/dL (0.70-1.30) L 02/22/20 10:30 Glucose 96 mg/dL (70-99) 02/22/20 10:30 Calcium 8.8 mg/dL (8.4-10.2) 02/22/20 10:30 Total Bilirubin 0.2 mg/dL (0.0-1.0) 02/22/20 10:30 AST 16 U/L (10-37) 02/22/20 10:30 ALT 23 U/L (12-78) 02/22/20 10:30 Alkaline Phosphatase 84 U/L (46-116) 02/22/20 10:30 Total Protein 6.7 g/dL (6.4-8.3) 02/22/20 10:30 Albumin 3.1 g/dL (3.4-5.0) L 02/22/20 10:30 Triglycerides 55 mg/dL (30-150) 02/17/20 19:50 Cholesterol 287 mg/dL (<200) H 02/17/20 19:50 LDL Cholesterol 184 mg/dL (0-129) H 02/17/20 19:50 HDL Cholesterol 87 mg/dL (>55) 02/17/20 19:50 - Physical Exam Vitals and I&O: Vital Signs Temp 99.6 F 02/22/20 20:00 Pulse 86 02/22/20 20:00 Resp 20 02/22/20 20:00 BP 113/68 02/22/20 20:00 Pulse Ox 92 02/22/20 20:00 Intake & Output 02/22/20 02/22/20 02/23/20 06:59 18:59 06:59 Intake Total 480 1200 Output Total 2 Balance 478 1200 Intake: Oral 480 1200 Output: Urine/Stool Mix 2 Other: # Voids 1 4 # Bowel Movements 1 Stool Characteristics Soft Soft Soft Active Medications: Current Medications Acetaminophen (Tylenol) 650 mg PO Q6HR PRN PRN Reason: Pain (Mild 1-3) Stop: 04/18/20 15:13 Last Admin: 02/22/20 07:06 Dose: 650 mg Acetaminophen (Tylenol) 650 mg PO Q6HR PRN PRN Reason: Temperature Above 100 Stop: 04/18/20 15:13 Acetaminophen/Codeine Phosphate (Tylenol W/Codeine #3) 1 tab PO Q4HR PRN PRN Reason: MODERATE/SEVERE PAIN (7-10) Stop: 04/18/20 15:13 Al Hydrox/Mg Hydrox/Simethicone (Maalox) 30 ml PO Q4HR PRN PRN Reason: GI DISTRESS Stop: 04/18/20 15:13 Aspirin (Ecotrin) 81 mg PO DAILY [facility] Stop: 04/19/20 08:59 Last Admin: 02/22/20 08:46 Dose: Not Given Levothyroxine Sodium (Synthroid) 0.1 mg PO QDAC [facility] Stop: 04/19/20 07:29 Last Admin: 02/22/20 07:05 Dose: 0.1 mg Lorazepam (Ativan) 0.5 mg PO Q4HR PRN; Protocol PRN Reason: Anxiety Stop: 03/18/20 23:04 Lorazepam (Ativan) 0.5 mg PO HS [facility]; Protocol Stop: 04/18/20 20:59 Last Admin: 02/22/20 21:11 Dose: 0.5 mg Multivitamins/Vitamin C (Theragran) 1 tab PO DAILY [facility] Stop: 04/18/20 08:59 Last Admin: 02/22/20 08:34 Dose: Not Given Mupirocin (Bactroban Oint) 1 appl NS BID [facility] Stop: 02/24/20 09:01 Last Admin: 02/22/20 17:47 Dose: Not Given Nifedipine (Procardia Xl) 30 mg PO DAILY [facility] Stop: 04/19/20 08:59 Last Admin: 02/22/20 08:34 Dose: Not Given Risperidone (Risperdal) 0.5 mg PO BID [facility]; Protocol Stop: 04/22/20 08:59 Last Admin: 02/22/20 17:50 Dose: 0.5 mg Zolpidem Tartrate (Ambien) 5 mg PO HS PRN PRN Reason: Insomnia Stop: 04/17/20 23:04 General: weak HEENT: NC/AT Neck: Supple Lungs: CTAB Cardiovascular: RRR, Normal S1, Normal S2 Extremities: clear Neurological: no change Internal Medicine Assmt/Plan - Assessment Assessment: 1. HTN 2. Hypothyroidism 3. Agitation - Plan Plan: covid-19 screening resume nifedipine 30 mg po daily continue meds d/w r.n. reviewed complete medical records Nutritional Asmnt/Malnutr-PDOC - Dietary Evaluation Malnutrition Findings (Please click <Entered> for more info): Nutritional Asmnt/Malnutrition Start: 02/20/20 14: 37 Text: Status: Complete Freq: Protocol: Document 02/20/20 14:37 ROSALIE (Rec: 02/20/20 14:41 ROSALIE [id number]) Nutritional Asmnt/Malnutrition Patient General Information Nutritional Screening Low Risk Diagnosis Psychosis Pertinent Medical Hx/Surgical Hx Cerebral Palsy, CHF, Polyneuropathy, Debility, HTN, Dementia, Peripheral neuropathy, Schizophrenia, Hypothyroidism Subjective Information GI: WNL, Soft, Flat, Non- tender BM: Not Noted I/O: 1020/Not Noted Skin: Dryness, Redness, Abdomen- pink, TR lower arm- bruise J Carlos: 14 Diet Order: CCHO, NA2Gm Estimated Energy Needs: ( Geriatric, CBW) 9663-9706 kcals (25-30 kcals/ kg) 50-60g Pro (1.0-1.2 g/kg) 2851-7653 ml (25-30 ml/kg) Current Diet Order/ Nutrition Support CCHO, NA2Gm Patient / S.O Can Pertinent Medications Maalox (PRN), Synthroid, Theragran Pertinent Labs 02/17: POC Glucose 107 Nutritional Hx/Data Height 1.63 m Height (Calculated Centimeters) 162.6 Current Weight (lbs) 50.802 kg Weight (Calculated Kilograms) 50.8 Weight (Calculated Grams) 61446.3 Marlin Body Weight 120 LB (54.54 kg) % Marlin Body Weight 93 Body Mass Index (BMI) 19.2 Weight Status Approriate GI Symptoms GI Symptoms None Last BM Not Noted Difficult in: None Usual diet at home No fish Skin Integrity/Comment: Dryness, Redness, Abdomen- pink, TR lower arm- bruise J Carlos: 14 Current %PO Fair (50-74%) Estimated Nutritional Goals BEE in Kcals: Using Current wt Calories/Kcals/Kg 20-25 Kcals Calculated 9050-0101 Protein: Using Current wt Protein g/k.0-1.2 Protein Calculated 50-60 Fluid: ml 7191-9071 ml (25-30 ml/kg) Nutritional Problem No current Nutrition Prob Problem No nutrition diagnosis at this time. Etiology N/A Signs/Symptoms: N/A Malnutrition Related to Morbid Obesity Malnutrition related to morbid obesity No Intervention/Recommendation Comments 1. Continue CCHO, NA2Gm diet as tolerated. 2. Recommendation diet order of Na2Gm. Expected Outcomes/Goals Expected Outcomes/Goals 1. PO intake to meet >75% of estimated nutritional needs. 2. Monitor PO intake, wt, nutrition related labs, and skin integrity to trend WNL. 3. F/U as low risk in 7-10 days, 02/26-03/01.
[2020-02-23] MEDS: Levothyroxine 0.1 Mg Tab PO SCH (06:52)
[2020-02-23] MEDS: NIFEdipine 30 mg ER Tab PO SCH (09:47)
[2020-02-23] MEDS: Multivitamin Tab PO SCH (09:48)
--- NOTE | 2020-02-23 14:18 | Internal Medicine Prog Note ---
Internal Medicine Subjective - Subjective Service Date: 02/23/20 Patient seen and examined:: without staff Patient is:: awake Per staff patient has:: no adverse event, no episodes of fall (no fevers no cough no chest pain no sob) Internal Medicine Objective - Results Result Diagrams: 02/22/20 10:30 02/22/20 10:30 Recent Labs: Laboratory Last Values WBC 2.6 K/uL (4.8-10.8) L 02/22/20 10:30 RBC 4.55 MIL/uL (4.2-6.2) 02/22/20 10:30 Hgb 13.8 g/dL (12.0-16.0) 02/22/20 10:30 Hct 42.1 % (36-48) 02/22/20 10:30 MCV 92 fL (79.0-98.0) 02/22/20 10:30 MCH 30 pg (27-31) 02/22/20 10:30 MCHC 33 % (32-36) 02/22/20 10:30 RDW 14.6 % (9.0-15.0) 02/22/20 10:30 Plt Count 189 K/uL (130-430) 02/22/20 10:30 MPV 7.4 fl (7.4-10.4) 02/22/20 10:30 Neut % (Auto) 56.6 % (40-70) 02/22/20 10:30 Lymph % (Auto) 29.6 % (20.5-51.5) 02/22/20 10:30 Mckean % (Auto) 12.2 % (1.7-9.3) H 02/22/20 10:30 Eos % (Auto) 1.1 % (0-4) 02/22/20 10:30 Baso % (Auto) 0.5 % (0.0-2.0) 02/22/20 10:30 Neut # (Auto) 1.5 K/uL (1.8-7.7) L 02/22/20 10:30 Lymph # (Auto) 0.8 K/uL (1.0-5.5) 02/22/20 10:30 Mckean # (Auto) 0.3 K/uL (0.0-1.0) 02/22/20 10:30 Eos # (Auto) 0.0 K/uL (0.0-0.4) 02/22/20 10:30 Baso # (Auto) 0.0 K/uL (0.0-0.2) 02/22/20 10:30 Sodium 130 mmol/L (136-145) L 02/22/20 10:30 Potassium 3.7 mmol/L (3.5-5.1) 02/22/20 10:30 Chloride 96 mmol/L (98-107) L 02/22/20 10:30 Carbon Dioxide 27 mmol/L (23-29) 02/22/20 10:30 Anion Gap 11 (5-15) 02/22/20 10:30 BUN 15 mg/dL (8-21) 02/22/20 10:30 Creatinine 0.58 mg/dL (0.70-1.30) L 02/22/20 10:30 Glucose 96 mg/dL (70-99) 02/22/20 10:30 Calcium 8.8 mg/dL (8.4-10.2) 02/22/20 10:30 Total Bilirubin 0.2 mg/dL (0.0-1.0) 02/22/20 10:30 AST 16 U/L (10-37) 02/22/20 10:30 ALT 23 U/L (12-78) 02/22/20 10:30 Alkaline Phosphatase 84 U/L (46-116) 02/22/20 10:30 Total Protein 6.7 g/dL (6.4-8.3) 02/22/20 10:30 Albumin 3.1 g/dL (3.4-5.0) L 02/22/20 10:30 Triglycerides 55 mg/dL (30-150) 02/17/20 19:50 Cholesterol 287 mg/dL (<200) H 02/17/20 19:50 LDL Cholesterol 184 mg/dL (0-129) H 02/17/20 19:50 HDL Cholesterol 87 mg/dL (>55) 02/17/20 19:50 - Physical Exam Vitals and I&O: Vital Signs Temp 98.9 F 02/23/20 06:56 Pulse 78 02/23/20 09:47 Resp 18 02/23/20 08:00 BP 109/67 02/23/20 09:47 Pulse Ox 93 02/23/20 06:56 Intake & Output 02/22/20 02/23/20 02/23/20 18:59 06:59 18:59 Intake Total 1200 120 Balance 1200 120 Intake: Oral 1200 120 Other: # Voids 4 3 # Bowel Movements 1 1 Stool Characteristics Soft Soft Soft Active Medications: Current Medications Acetaminophen (Tylenol) 650 mg PO Q6HR PRN PRN Reason: Pain (Mild 1-3) Stop: 04/18/20 15:13 Last Admin: 02/22/20 07:06 Dose: 650 mg Acetaminophen (Tylenol) 650 mg PO Q6HR PRN PRN Reason: Temperature Above 100 Stop: 04/18/20 15:13 Acetaminophen/Codeine Phosphate (Tylenol W/Codeine #3) 1 tab PO Q4HR PRN PRN Reason: MODERATE/SEVERE PAIN (7-10) Stop: 04/18/20 15:13 Al Hydrox/Mg Hydrox/Simethicone (Maalox) 30 ml PO Q4HR PRN PRN Reason: GI DISTRESS Stop: 04/18/20 15:13 Aspirin (Ecotrin) 81 mg PO DAILY [facility] Stop: 04/19/20 08:59 Last Admin: 02/23/20 09:49 Dose: 81 mg Levothyroxine Sodium (Synthroid) 0.1 mg PO QDAC [facility] Stop: 04/19/20 07:29 Last Admin: 02/23/20 06:52 Dose: 0.1 mg Lorazepam (Ativan) 0.5 mg PO Q4HR PRN; Protocol PRN Reason: Anxiety Stop: 03/18/20 23:04 Lorazepam (Ativan) 0.5 mg PO HS [facility]; Protocol Stop: 04/18/20 20:59 Last Admin: 02/22/20 21:11 Dose: 0.5 mg Multivitamins/Vitamin C (Theragran) 1 tab PO DAILY [facility] Stop: 04/18/20 08:59 Last Admin: 02/23/20 09:48 Dose: Not Given Mupirocin (Bactroban Oint) 1 appl NS BID [facility] Stop: 02/24/20 09:01 Last Admin: 02/23/20 09:47 Dose: Not Given Nifedipine (Procardia Xl) 30 mg PO DAILY [facility] Stop: 04/19/20 08:59 Last Admin: 02/23/20 09:47 Dose: Not Given Risperidone (Risperdal) 0.5 mg PO BID [facility]; Protocol Stop: 04/22/20 08:59 Last Admin: 02/23/20 09:49 Dose: 0.5 mg Zolpidem Tartrate (Ambien) 5 mg PO HS PRN PRN Reason: Insomnia Stop: 04/17/20 23:04 General: weak HEENT: NC/AT Neck: Supple Lungs: CTAB Cardiovascular: RRR, Normal S1, Normal S2 Extremities: clear Neurological: no change Internal Medicine Assmt/Plan - Assessment Assessment: 1. HTN 2. Hypothyroidism 3. Agitation - Plan Plan: continue synthroid continue nifedipine 30 mg po daily for BP await covid results d/w r.n. reviewed complete medical records Nutritional Asmnt/Malnutr-PDOC - Dietary Evaluation Malnutrition Findings (Please click <Entered> for more info): Nutritional Asmnt/Malnutrition Start: 02/20/20 14: 37 Text: Status: Complete Freq: Protocol: Document 02/20/20 14:37 ROSALIE (Rec: 02/20/20 14:41 ROSALIE [id number]) Nutritional Asmnt/Malnutrition Patient General Information Nutritional Screening Low Risk Diagnosis Psychosis Pertinent Medical Hx/Surgical Hx Cerebral Palsy, CHF, Polyneuropathy, Debility, HTN, Dementia, Peripheral neuropathy, Schizophrenia, Hypothyroidism Subjective Information GI: WNL, Soft, Flat, Non- tender BM: Not Noted I/O: 1020/Not Noted Skin: Dryness, Redness, Abdomen- pink, TR lower arm- bruise J Carlos: 14 Diet Order: CCHO, NA2Gm Estimated Energy Needs: ( Geriatric, CBW) 7722-0541 kcals (25-30 kcals/ kg) 50-60g Pro (1.0-1.2 g/kg) 5847-8984 ml (25-30 ml/kg) Current Diet Order/ Nutrition Support CCHO, NA2Gm Patient / S.O Can Pertinent Medications Maalox (PRN), Synthroid, Theragran Pertinent Labs 02/17: POC Glucose 107 Nutritional Hx/Data Height 1.63 m Height (Calculated Centimeters) 162.6 Current Weight (lbs) 50.802 kg Weight (Calculated Kilograms) 50.8 Weight (Calculated Grams) 19383.3 [place] Body Weight 120 LB (54.54 kg) % [place] Body Weight 93 Body Mass Index (BMI) 19.2 Weight Status Approriate GI Symptoms GI Symptoms None Last BM Not Noted Difficult in: None Usual diet at home No fish Skin Integrity/Comment: Dryness, Redness, Abdomen- pink, TR lower arm- bruise J Carlos: 14 Current %PO Fair (50-74%) Estimated Nutritional Goals BEE in Kcals: Using Current wt Calories/Kcals/Kg 20-25 Kcals Calculated 8116-5910 Protein: Using Current wt Protein g/k.0-1.2 Protein Calculated 50-60 Fluid: ml 6518-3456 ml (25-30 ml/kg) Nutritional Problem No current Nutrition Prob Problem No nutrition diagnosis at this time. Etiology N/A Signs/Symptoms: N/A Malnutrition Related to Morbid Obesity Malnutrition related to morbid obesity No Intervention/Recommendation Comments 1. Continue CCHO, NA2Gm diet as tolerated. 2. Recommendation diet order of Na2Gm. Expected Outcomes/Goals Expected Outcomes/Goals 1. PO intake to meet >75% of estimated nutritional needs. 2. Monitor PO intake, wt, nutrition related labs, and skin integrity to trend WNL. 3. F/U as low risk in 7-10 days, 02/26-03/01.
--- NOTE | 2020-02-23 22:03 | Progress Notes ---
DATE: 02/23/2020 SUBJECTIVE: Chart reviewed and the patient interviewed. Also discussed the patient's condition with the staff and reviewed records and labs. The patient is still in irritable mood. The patient also is still agitated and is still nervous at times. She also is still verbally abusive to staff and demanding. She also still has difficulty expressing herself and expressing her feelings. Otherwise, the patient continued to comply with taking her medications with no side effect of medications. ASSESSMENT: The patient is still psychotic and is still agitated and in irritable mood. TREATMENT PLAN: Continue to monitor behavior and condition closely. Also, continue to work on irritability and on her anger. Also, it seems that the patient might not be able to return to [facility] according to the report from community case manager to me today. At the same time, I will continue adjusting medications and work on behavioral modification and possible placement issue. JOB# [id number]
[2020-02-24] MEDS: Levothyroxine 0.1 Mg Tab PO SCH (06:40)
--- NOTE | 2020-02-24 08:13 | Progress Notes ---
DATE: SUBJECTIVE: Chart reviewed and the patient interviewed. Discussed the patient's condition with the staff and reviewed records and labs. The patient is still in irritable and angry mood. The patient also is demanding and argumentative and not helpful with her care. COVID test came back positive and the patient placed on isolation and decision to be made by Dr. Sanon regarding further treatment plans. Otherwise, the patient is compliant with taking her medications and no side effects of medications. ASSESSMENT: The patient is still severely irritable and is agitated and needs to be in isolation. TREATMENT PLAN: We will continue to monitor her behavior and her condition closely. Also, we will increase Risperdal to 1 mg twice a day. Also, we will continue to work on her poor impulse control and irritability and also continue to follow up in regard to her COVID-19 positive test and what can be done next regard to her treatment. At this time, the patient is asymptomatic. JOB# [id number]
[2020-02-24] MEDS: Multivitamin Tab PO SCH (08:47)
[2020-02-24] MEDS: NIFEdipine 30 mg ER Tab PO SCH (08:47)
== END 2020-02-24 10:18 | disposition short-term general hospital (02) | DRG 884 ==
LOC: GERO 21:38
PROVIDERS: ADMIT Psychiatry & Neurology Psychiatry; ATTEND Psychiatry & Neurology Psychiatry
DX: F03.91 Unspecified dementia, unspecified severity, with behavioral disturbance (principal); U07.1 COVID-19; I11.0 Hypertensive heart disease with heart failure; I50.9 Heart failure, unspecified; E03.9 Hypothyroidism, unspecified; F20.9 Schizophrenia, unspecified; G62.9 Polyneuropathy, unspecified; G80.9 Cerebral palsy, unspecified; F41.9 Anxiety disorder, unspecified
CPT/HCPCS: 36415-UA; 80053-TC; 80061-TC; 83036-90; 85025-TC; U0003-CS; Z7610